=== PATIENT | female | born 1990 | race Caucasian/White ===

== ENCOUNTER 2018-01-11 18:18 | Inpatient (IN) | payer OTHER ==
--- NOTE | 2018-01-11 19:05 | Admission Physical ---
Datetime Report Generated by CPN: 01/11/2018 19:05 CURRENT ADMISSION Chief Complaint: Uterine Contractions Indication for Induction: Not Applicable Admit Impression : Term, Intrauterine ; Active Labor Admit Plan: Admit to Unit; Initiate Labor Protocol PHYSICAL EXAM General: Normal HEENT: Normal Neurologic: Normal Thyroid: Normal Heart: Normal Lungs: Normal Breast: Deferred Back: Normal Abdomen: Normal Genitourinary Exam: Normal Extremities: Normal DTRs: Normal Pelvic Type: Adequate Vital Signs: Reviewed VAGINAL EXAM Dilatation: 5 Effacement: 90 Station: 0 MEMBRANES Pooling: Negative Membranes: Intact FETUS A Monitoring: External US FHR- Baseline: 120 Variability: Moderate 6-25bpm Decelerations: None FHR Category: Category I Presentation: Vertex Admit Comment: Admit for labor. INFORMED CONSENT Signature: with User ID: [email or web address]
[2018-01-11 19:17] LABS: APPEARANCE,URINE CLEAR; BILIRUBIN,URINE NEGATIVE (NEGATIVE); COLOR,URINE YELLOW; GLUCOSE, URINE NEGATIVE (NEGATIVE); KETONES,URINE NEGATIVE (NEGATIVE); LEUKOCYTE ESTERASE,URINE NEGATIVE (NEGATIVE); NITRITE,URINE NEGATIVE (NEGATIVE); PROTEIN,URINE NEGATIVE (NEGATIVE); URINE SPECIFIC GRAVITY 1.013; UROBILINOGEN,URINE NEGATIVE mg/dL (<2.0)
[2018-01-11 19:33] LABS: ABSOLUTE MONOCYTES (AUTO) 0.9 10^3/uL (0.1-1.4); ABSOLUTE NEUT (AUTO) 9.6 10^3/uL (1.7-8.2); BASOPHILS % (AUTO) 0.2 % (0-2); EOSINOPHILS % (AUTO) 0.2 % (0-6); HEMATOCRIT 34.4 % (36.0-47.0); HEMOGLOBIN 11.3 g/dL (12.0-15.5); LYMPHOCYTES % (AUTO) 15.7 % (13-45); MEAN CORPUSCULAR HEMOGLOBIN 27.2 pg (27.0-33.4); MEAN CORPUSCULAR VOLUME 82 fl (80-97); MONOCYTES % (AUTO) 6.9 % (3-13); PLATELET COUNT 267 10^3/uL (150-450); RED BLOOD COUNT 4.17 10^6/uL (3.72-5.28); RED CELL DISTRIBUTION WIDTH 14.4 % (11.5-14.0); TOTAL CELLS COUNTED % (AUTO) 100 %; WHITE BLOOD COUNT 12.5 10^3/uL (4.0-10.5)
[2018-01-11 19:38] LABS: URINE AMPHETAMINES SCREEN NEGATIVE; URINE BARBITURATES SCREEN NEGATIVE; URINE BENZODIAZEPINES SCREEN NEGATIVE; URINE COCAINE SCREEN NEGATIVE; URINE MARIJUANA (THC) SCREEN NEGATIVE; URINE METHADONE SCREEN NEGATIVE; URINE PHENCYCLIDINE SCREEN NEGATIVE
[2018-01-11] MEDS ORDERED: LIDOCAINE 1% INJ-PF (10 MG/ML) 30 ML SDV ONE (19:42)
[2018-01-11] MEDS ORDERED: MISOPROSTOL 0.2 MG TABLET ONE (19:42)
[2018-01-11] MEDS ORDERED: OXYTOCIN/NORMAL SALINE 20 UNIT/1,000 ML RTUINJ ONE (19:42)
[2018-01-11] MEDS ORDERED: IBUPROFEN 800 MG TABLET ONE (20:41)
[2018-01-11] MEDS ORDERED: ACETAMINOPHEN WITH CODEINE #3 TABLET ONE (20:41)
[2018-01-11] MEDS ORDERED: BENZOCAINE/MENTHOL AEROSOL SPRAY 56 ML TOP PRN (20:43)
[2018-01-11] MEDS ORDERED: DIBUCAINE 1% OINTMENT 28 GM TP PRN (20:43)
[2018-01-11] MEDS ORDERED: OXYTOCIN/NORMAL SALINE 20 UNIT/1,000 ML RTUINJ IV PRN (20:43)
[2018-01-11] MEDS ORDERED: ZOLPIDEM TARTRATE 5 MG TABLET PO PRN (20:43)
[2018-01-11] MEDS ORDERED: DIPH/PERTUSS(ACELL)/TETANUS VAC/PF 0.5 ML SYR (>=10YO) IM PRN (20:43)
[2018-01-11] MEDS ORDERED: MEASLES,MUMPS&RUBELLA VACC/PF 0.5 ML VIAL SUBCUT PRN (20:43)
[2018-01-11] MEDS ORDERED: ACETAMINOPHEN WITH CODEINE #3 TABLET PO PRN (20:43)
[2018-01-11] MEDS: ACETAMINOPHEN WITH CODEINE #3 TABLET PO PRN (21:00)
[2018-01-11] MEDS: IBUPROFEN 800 MG TABLET PO SCH (21:00)
--- NOTE | 2018-01-11 22:31 | Delivery Summary ---
Del Sum A-C Datetime Report Generated by CPN: 01/11/2018 22:31 DELIVERY PERSONNEL DELIVERY PERSONNEL: [id number] Delivery Doctor:: Flor Molina MD Labor and Delivery Nurse:: Nell Stinson, RN [place]/LICENSED SALES ASSISTANT: Erica Green, ST MATERNAL INFORMATION Delivery Anesthesia: None Medications After Delivery: Pitocin Drip 20 Units/1000ml NSS Estimated Blood Loss (ml): 250 Maternal Complications: Precipitous Labor (<3hrs) LABOR SUMMARY EDC: 01/13/2018 00:00 No. Babies in Womb: 1 Attempted: No Labor Anesthesia: None LABOR INFORMATION Reason for Induction: Not Applicable Onset of Labor: 01/11/2018 18:28 Complete Dilatation: 01/11/2018 19:54 Oxytocin: N/A Group B Beta Strep: Negative MEMBRANES Membranes Rupture Method: Spontaneous Rupture of Membranes: 01/11/2018 19:48 Length of Rupture (hr): 0.23 Amniotic Fluid Color: Clear Amniotic Fluid Amount: Small Amniotic Fluid Odor: Normal STAGES OF LABOR Stage 1 hr: 1 Stage 1 min: 26 Stage 2 hr: 0 Stage 2 min: 8 Stage 3 hr: 0 Stage 3 min: 3 Total Time in Labor hr: 1 Total Time in Labor min: 37 VAGINAL DELIVERY Episiotomy: None Laceration #1: Perineal Laceration Extension #1: Second Degree Laceration #2: None Laceration Extension #2: N/A Laceration #3: None Laceration Extension #3: N/A Laceration Repair: Yes Laceration Repair Note: repair with 3-0 chromic suture in usual fashion Sponge Count Correct: Vaginal Sweep Performed Sharps Count Correct: Yes CSECTION DELIVERY Primary Indication: N/A Secondary Indication: N/A CSection Incidence: N/A Labor: N/A Elective: N/A CSection Incision: N/A BABY A INFORMATION Infant Delivery Date/Time: 01/11/2018 20:02 Method of Delivery: Vaginal Born in Route : No : N/A Forceps: N/A Vacuum Extraction: N/A Shoulder Dystocia : No PRESENTATION/POSITION BABY A Presentation: Cephalic Cephalic Presentation: Vertex Vertex Position: Right Occipital Anterior Breech Presentation: N/A PLACENTA INFORMATION BABY A Placenta Delivery Time : 01/11/2018 20:05 Placenta Method of Delivery: Spontaneous Placenta Status: Delivered SCORES BABY A Heart Rate 1 min: >100 bpm Resp Effort 1 min: Good Cry Reflex Irritability 1 min: Cough or Sneeze or Pulls Away Muscle Tone 1 min: Active Motion Color 1 min: Body [place], Extremities Blue Resuscitation Effort 1 min: Tactile Stimulation SCORE 1 MIN: 9 Heart Rate 5 min: >100 bpm Resp Effort 5 min: Good Cry Reflex Irritability 5 min: Cough or Sneeze or Pulls Away Muscle Tone 5 min: Active Motion Color 5 min: Body [place], Extremities Blue Resuscitation Effort 5 min: Tactile Stimulation SCORE 5 MIN: 9 INFORMATION BABY A Gestational Age at Delivery: 39.5 Gestational Status: Full Term- 39- 40.6 Weeks Outcome : Liveborn Infant Condition : Stable Infant Sex: Male WEIGHT/LENGTH BABY A Birthweight (gm): 3690 Infant Weight (lb): 8 Infant Weight (oz): 2 Infant Length (in): 20.25 Length (cm): 51.44 CORD INFORMATION BABY A No. Cord Vessels: 3 Nuchal Cord : N/A Suction: None ASSESSMENT BABY A Complications: None Physical Findings at Delivery: Within Normal Limits Skin to Skin: Yes Transferred To: Remains with Mother BABY B INFORMATION : N/A SIGNATURES Signature: with User ID: [email or web address]
[2018-01-12] MEDS: ACETAMINOPHEN WITH CODEINE #3 TABLET PO PRN (01:33)
[2018-01-12] MEDS: PRENATAL VITAMIN W DHA CAPSULE PO SCH (09:14)
[2018-01-12] MEDS: SENNOSIDES/DOCUSATE 8.6-50 MG 1 EACH TABLET PO SCH (09:14)
[2018-01-12] MEDS: DOCUSATE SODIUM 100 MG CAPSULE PO SCH ×2 (09:14→17:24)
[2018-01-12] MEDS: FERROUS SULFATE 325 MG TABLET PO SCH ×2 (09:14→17:24)
--- NOTE | 2018-01-12 10:25 | PDOC PROGRESS REPORT ---
Subjective-OB Progress Note for:: 01/12/18 Subjective: Doing well, no c/o, mother at BS, scant bleeding, Physical Exam (OB) Vital Signs: Temp Pulse Resp BP Pulse Ox 98.1 F 93 18 99/57 L 98 01/11/18 22:51 01/11/18 22:51 01/11/18 22:51 01/11/18 22:51 01/11/18 22:51 Intake & Output 01/11/18 01/12/18 01/13/18 06:59 06:59 06:59 Intake Total 200 Balance 200 - PIH/Pre-Eclampsia DTR's: 2 + Clonus: Negative Headache: Absent Epigastric Pain: No Visual Changes: No - Lochia Lochia Amount: Scant < 10 ml Lochia Color: Rubra/Red - Abdomen Description: Tender, Soft Hernia Present: No Fundal Description: Firm, Midline Fundal Height: u/u - u/2 Objective-Diagnostic Laboratory: 01/11/18 01/11/18 01/11/18 18:34 19:20 19:20 WBC 12.5 H RBC 4.17 Hgb 11.3 L Hct 34.4 L MCV 82 MCH 27.2 MCHC 33.0 RDW 14.4 H Plt Count 267 Seg Neutrophils % 77.0 Lymphocytes % 15.7 Monocytes % 6.9 Eosinophils % 0.2 Basophils % 0.2 Absolute Neutrophils 9.6 H Absolute Lymphocytes 2.0 Absolute Monocytes 0.9 Absolute Eosinophils 0.0 Absolute Basophils 0.0 Urine Color YELLOW Urine Appearance CLEAR Urine pH 7.0 Ur Specific [place] 1.013 Urine Protein NEGATIVE Urine Glucose (UA) NEGATIVE Urine Ketones NEGATIVE Urine Blood NEGATIVE Urine Nitrite NEGATIVE Ur Leukocyte Esterase NEGATIVE Blood Type B NEGATIVE Antibody Screen POSITIVE Assessment and Plan(PN) - Assessment and Plan (1) Vaginal delivery Is this a current diagnosis for this admission?: Yes - Time Spent with Patient Time with patient: Less than 15 minutes Medications reviewed and adjusted accordingly: Yes - Disposition Anticipated Discharge: Home Within: within 24 hours
[2018-01-12 10:31] LABS: HEMATOCRIT 27.9 % (36.0-47.0); MEAN CORPUSCULAR HEMOGLOBIN 27.2 pg (27.0-33.4); MEAN CORPUSCULAR HGB CONC 32.6 g/dL (32.0-36.0); MEAN CORPUSCULAR VOLUME 83 fl (80-97); PLATELET COUNT 211 10^3/uL (150-450); RED BLOOD COUNT 3.36 10^6/uL (3.72-5.28); RED CELL DISTRIBUTION WIDTH 14.4 % (11.5-14.0); WHITE BLOOD COUNT 14.6 10^3/uL (4.0-10.5)
[2018-01-12 10:33] LABS: HEMOGLOBIN 9.1 g/dL (12.0-15.5)
[2018-01-12] MEDS: IBUPROFEN 800 MG TABLET PO SCH ×3 (13:31→22:28)
[2018-01-13] MEDS: IBUPROFEN 800 MG TABLET PO SCH (05:23)
[2018-01-13 08:21] VITALS: BP 110/54
--- NOTE | 2018-01-13 09:19 | PDOC DISCHARGE SUMMARY ---
Final Diagnosis Discharge Date: 01/13/18 - Final Diagnosis (1) Vaginal delivery Is this a current diagnosis for this admission?: Yes Discharge Data - Discharge Medication Prescriptions: Ibuprofen [Motrin 800 mg Tablet] 800 mg PO Q8 #30 tablet Home Medications: Ibuprofen [Motrin 800 mg Tablet] 800 mg PO Q8 #30 tablet 01/13/18 Reason(s) for Admission: Onset of Labor Intrapartum Procedure(s): Spontaneous Vaginal Delivery - Diagnosis Test Laboratory: Temp Pulse Resp BP Pulse Ox 98.1 F 83 18 110/54 L 100 01/13/18 07:41 01/13/18 07:41 01/13/18 07:41 01/13/18 07:41 01/13/18 07:41 01/11/18 01/11/18 01/12/18 18:34 19:20 07:00 RBC 4.17 3.36 L Hgb 11.3 L 9.1 L D Hct 34.4 L 27.9 L Urine Opiates Screen NEGATIVE - Discharge information/Instructions Discharge Activity: Pelvic Rest, No tub bath Discharge Diet: As Tolerated Disposition: HOME, SELF-CARE Follow up with: [facility] in: 4, Weeks
[2018-01-13] MEDS: PRENATAL VITAMIN W DHA CAPSULE PO SCH (10:11)
[2018-01-13] MEDS: FERROUS SULFATE 325 MG TABLET PO SCH (10:11)
[2018-01-13] MEDS: SENNOSIDES/DOCUSATE 8.6-50 MG 1 EACH TABLET PO SCH (10:11)
[2018-01-13] MEDS: DOCUSATE SODIUM 100 MG CAPSULE PO SCH (10:11)
== END 2018-01-13 14:10 | disposition home or self-care (01) | DRG 775 ==
LOC: LC 18:18 → LR 19:01 → 2N 22:35
PROVIDERS: ADMIT Obstetrics & Gynecology; ATTEND Obstetrics & Gynecology
PROC: 10E0XZZ Delivery of Products of Conception, External Approach (ICD-10-PCS; principal; 2018-01-11)
PROC: 0KQM0ZZ Repair Perineum Muscle, Open Approach (ICD-10-PCS; 2018-01-11)
PROC: 4A1HXCZ Monitoring of Products of Conception, Cardiac Rate, External Approach (ICD-10-PCS; 2018-01-11)
DX: O26.893 Other specified pregnancy related conditions, third trimester (principal); Z67.21 Type B blood, Rh negative; O62.3 Precipitate labor; O70.1 Second degree perineal laceration during delivery; Z28.21 Immunization not carried out because of patient refusal; Z3A.39 39 weeks gestation of pregnancy; Z37.0 Single live birth
CPT/HCPCS: 36415; 80307; 81005; 85025; 85027; 85461; 86592; 86850; 86870; 86900; 86901; J2590; J2790; J3490